=== PATIENT | female | born 1970 | race American Indian/Alaskan Native ===

== ENCOUNTER 2017-05-22 20:31 | Emergency (ER) | payer SELFPAY ==
[2017-05-22 20:32] VITALS: BMI 25.0
[2017-05-22 21:19] VITALS: BP 127/65; PULSE 72; RESP 16; TEMP 98.2; O2SAT 100
--- NOTE | 2017-05-22 21:22 | ED PDOC ---
Arrival/HPI - General Chief Complaint: Chest Pain Time Seen by Provider: 05/22/17 21:01 Historian: Patient - History of Present Illness Narrative History of Present Illness (Text): 05/22/17 21:05 Lindy Birmingham is a 46 year old female, with no significant past medical history , presents to the emergency department complaining of 1 day duration of retrosternal chest discomfort with exertion associated with shortness of breath. States that pain originates in the epigastric region and radiates to the chest. Describes discomfort as a pressure sensation. Denies any fever, chills, headache, dizziness, nausea, vomiting, diarrhea, urinary symptoms, or any other complaints at this time. Time/Duration: Other (1 day ) Symptom Course: Unchanged Severity Level: Mild Activities at Onset: Light Past Medical History - Provider Review Nursing Documentation Reviewed: Yes - Infectious Disease Hx of Infectious Diseases: None - Tetanus Immunization Tetanus Immunization: Unknown - Past Medical History Past Medical History: No Previous - Cardiac Hx Cardiac Disorders: No - Pulmonary Hx Respiratory Disorders: No - Neurological Hx Neurological Disorder: No - HEENT Hx HEENT Disorder: No - Renal Hx Renal Disorder: No - Endocrine/Metabolic Hx Endocrine Disorders: No - Hematological/Oncological Hx Blood Disorders: No - Integumentary Hx Dermatological Disorder: No - Musculoskeletal/Rheumatological Hx Musculoskeletal Disorders: No - Gastrointestinal Hx Gastrointestinal Disorders: No - Genitourinary/Gynecological Hx Genitourinary Disorders: No - Psychiatric Hx Psychophysiologic Disorder: Yes Hx Depression: Yes Hx Emotional Abuse: No Hx Physical Abuse: No Hx Substance Use: No - Past Surgical History Past Surgical History: No Previous - Anesthesia Hx Anesthesia: No - Suicidal Assessment Feels Threatened In Home Enviroment: No Family/Social History - Physician Review Nursing Documentation Reviewed: Yes Family/Social History: No Known Family HX Smoking Status: Never Smoked Hx Alcohol Use: Yes Frequency of alcohol use: Socially Hx Substance Use: No Hx Substance Use Treatment: No Allergies/Home Meds Allergies/Adverse Reactions: Allergies Penicillins Allergy (Verified 05/22/17 21:13) SHORTNESS OF BREATH Home Medications: Home Meds Medication Instructions Recorded Confirmed No Known Home Med [No Known Home 06/06/14 06/06/14 Med] Physical Exam - Physical Exam Narrative Physical Exam (Text): - Review of Systems Constitutional: Normal. absent: Fatigue, Weight Change, Fevers Eyes: Normal ENT: Normal Respiratory: Present: SOB absent: Cough, Sputum Cardiovascular: Present: Chest pain absent: Palpitations, Syncope Gastrointestinal: Present: Epigastric pain absent: Diarrhea, Nausea, Vomiting Genitourinary: Normal. absent: Dysuria, Frequency, Hematuria Musculoskeletal: Normal. absent: Arthralgias, Back Pain, Neck Pain Skin: Normal Neurological: Normal absent: Focal Weakness Endocrine: Normal Hemo/Lymphatic: Normal Psychiatric: Normal - Physical exam Patient appears age appropriate, speaking full sentences without difficulty. - Systems Exam Head: Present: Atraumatic, Normocephalic Pupils: Present: PERRL Extraocular Muscles: Present: EOMI Conjunctiva: Present: Normal Mouth: Present: Moist Mucous Membranes Neck: Present: Normal Range of Motion. No: MIDLINE TENDERNESS, Paraspinal Tenderness Respiratory/Chest: Present: Clear to Auscultation, Good Air Exchange. No: Respiratory Distress, Accessory Muscle Use, Tachypnic Cardiovascular: Present: Regular Rate and Rhythm, Normal S1, S2, Peripheral Pulses Present. No: Murmurs Abdomen: Present: Normal Bowel Sounds, No: Tenderness, Peritoneal Signs, Rebound, Guarding, Distention Back: Present: Normal Inspection. No: Midline Tenderness, Paraspinal Tenderness Upper Extremity: Present: Normal Inspection. No: Cyanosis, Edema Lower Extremity: Present: Normal Inspection. No: Edema Neurological: Present: GCS=15, Speech Normal, cranial nerves II through XII fully intact with no cerebellar abnormality, neuro-sensory fully intact. No focal neurological deficits. Skin: Present: Warm, Dry, Normal Color. No: Rashes Lymphatic: Present: OX3, NI, NC Psychiatric: Present: Alert, Oriented x 3, Normal Insight, Normal Concentration Vital Signs Reviewed: Yes Vital Signs Temp Pulse Resp BP Pulse Ox 05/22/17 21:18 98.2 F 72 16 127/65 100 Temperature: Afebrile Blood Pressure: Normal Pulse: Regular Respiratory Rate: Normal Appearance: Positive for: Well-Appearing, Non-Toxic, Comfortable Pain Distress: None Mental Status: Positive for: Alert and Oriented X 3 Medical Decision Making ED Course and Treatment: 05/22/17 21:23 Impression: A 46 year old female who presents to the emergency department complaining of 1 day duration of exertional chest discomfort. Differential Diagnosis included but are not limited to: ACS vs. PE vs. Atypical chest pain Plan: -- labs, cardiac enzymes -- Chest X-ray -- Aspirin -- Nitroglycerin -- Reassess and disposition Progress Notes: 05/22/17 21:26 Patient was offered 3 hour observation in the emergency department for repeat troponin. But patient states that she feels uncomfortable and wants to be observed in the hospital overnight. 05/22/17 22:25 Chest X-ray read and interpreted by me, which shows no cardiomegaly, no pneumothorax, no effusions. 05/22/17 22:[address] Carpenter (house doc), accepted obs/tele. resident informed pt in no distress aware of and agrees with plan - Lab Interpretations Lab Results: 05/22/17 21:56 05/22/17 21:56 Lab Results 05/22/17 21:56: Sodium 138, Potassium 3.8, Chloride 103, Carbon Dioxide 27, Anion Gap 12, BUN 18, Creatinine 1.1, Est GFR ( Amer) > 60, Est GFR (Non- Af Amer) 53, Random Glucose 84, Calcium 9.2, Total Bilirubin 0.3, AST 22, ALT 22 , Alkaline Phosphatase 61, Lactate Dehydrogenase 407, Total Creatine Kinase 110 , Troponin I < 0.01, Total Protein 7.5, Albumin 4.0, Globulin 3.5, Albumin/ Globulin Ratio 1.1 05/22/17 21:56: PT 10.8, INR 1.00, APTT 27.3, D-Dimer, Quantitative 0.29 05/22/17 21:56: WBC 5.4, RBC 4.20, Hgb 10.7 L, Hct 32.9 L, MCV 78.3 L, MCH 25.5 , MCHC 32.5, RDW 14.4, Plt Count 320, MPV 9.5, Gran % 48.8 L, Lymph % (Auto) 43.0 H, [place] % (Auto) 4.5, Eos % (Auto) 3.0, Baso % (Auto) 0.7, Gran # 2.63, Lymph # 2.3, [place] # 0.2, Eos # 0.2, Baso # 0.04 I have reviewed the lab results: Yes - RAD Interpretation Radiology Orders: 05/22/17 21:19 CHEST PORTABLE [RAD] Stat [place] Layer: ED Physician - EKG Interpretation Interpreted by ED Physician: Yes Type: 12 lead EKG - Medication Orders Current Medication Orders: Discontinued Medications Aspirin (Aspirin Chewable) 324 mg PO STAT STA Stop: 05/22/17 21:15 Last Admin: 05/22/17 21:33 Dose: 324 mg Nitroglycerin (Nitrostat Sl Tab) 0.3 mg SL STAT STA Stop: 05/22/17 21:15 Last Admin: 05/22/17 21:33 Dose: 0.3 mg - Scribe Statement The provider has reviewed the documentation as recorded by the Apolonia Atkins Provider Attestation: Provider Scribe Attestation: All medical record entries made by the Apolonia were at my direction and personally dictated by me. I have reviewed the chart and agree that the record accurately reflects my personal performance of the history, physical exam, medical decision making, and the department course for this patient. I have also personally directed, reviewed, and agree with the discharge instructions and disposition. Disposition/Present on Arrival - Present on Arrival Any Indicators Present on Arrival: No History of DVT/PE: No History of Uncontrolled Diabetes: No Urinary Catheter: No History of Decub. Ulcer: No History Surgical Site Infection Following: None - Disposition Have Diagnosis and Disposition been Completed?: Yes Diagnosis: Chest pain Disposition: AGAINST MEDICAL ADVICE Disposition Time: 22:28 Patient Plan: Observation Patient Problems: Current Active Problems Problem Status Onset Chest pain Acute Condition: STABLE
[2017-05-22 22:06] LABS: BASO # 0.04 K/mm3 (0.0-2.0); BASO % 0.7 % (0.0-3.0); EOS # 0.2 (0.0-0.7); GRAN # 2.63 (1.4-6.5); GRAN % 48.8 % (50.0-68.0); HEMOGLOBIN 10.7 g/dL (12.0-16.0); LYMPH # 2.3 (1.2-3.4); MEAN CELL VOLUME 78.3 fl (80.0-105.0); MEAN CORPUSCULAR HEMOGLOBIN 25.5 pg (25.0-35.0); MEAN CORPUSCULAR HGB CONC 32.5 g/dl (31.0-37.0); MEAN PLATELET VOLUME 9.5 fl (7.0-11.0); MONO # 0.2 (0.1-0.6); MONO % 4.5 % (1.0-6.0); PLATELET COUNT 320 10^3/uL (120.0-450.0); RED CELL DISTRIBUTION WIDTH 14.4 % (11.5-14.5); WHITE BLOOD COUNT 5.4 10^3/ul (4.5-11.0)
[2017-05-22 22:18] LABS: ALB/GLOB RATIO 1.1 (1.1-1.8); ALT/SGPT 22 U/L (7-56); AST/SGOT 22 U/L (15-39); BLOOD UREA NITROGEN 18 mg/dL (7-21); CALCIUM 9.2 mg/dL (8.4-10.5); GFR AFRICAN-AMERICAN > 60; GFR NON-AFRICAN AMERICAN 53
[2017-05-22 22:28] LABS: PARTIAL THROMBOPLASTIN TIME 27.3 Seconds (23.7-30.8); PROTHROMBIN TIME 10.8 Seconds (9.9-11.8)
[2017-05-22 22:29] LABS: D DIMER 0.29 mg/L FEU (0-0.50)
[2017-05-22 22:32] LABS: TROPONIN I < 0.01 ng/mL
--- NOTE | 2017-05-23 00:55 | CP.PCM.HP ---
History of Present Illness - History of Present Illness History of Present Illness: CC: Chest pain HPI: Ms. Lindy Birmingham is a 46 year old AA female with a past medical history significant for HLD and a childhood heart murmur who presented to the ED with complaints of intermittent chest pain for the past two days. Patient states that two days ago, she was on her daily mile long walk when she began to experience a substernal non-radiating chest "pressure" with associated lightheadedness, dizziness and SOB. She states that the pain lasted for a few minutes, subsided and came back a few minutes later. This pattern continued for 2-3 cycles and then the pain completely subsided after patient rested. This same cycle began again today on her walk but the pain had increased and patient came to ED for evaluation. She reports that pain was worse with activity and better with rest. Patient has never experienced this before. Patient does endorse that her cousin just suffered a massive stroke last week and her dog this week and that she has been emotionally stressed out but that her fiance has been supportive. She also reports that she had an exercise stress test done two years ago that was "normal". An EKG done in the ED was read as NSR and a chest x-ray was read showing no cardiomegaly, no pneumothorax, and no effusions. A troponin done in the ED was negative. Currently, patient is asymptomatic. Patient denies headache, fever, chills, weight loss, neck pain, back pain, dysphagia, sore throat, palpitations, chest pain, shortness of breath, cough, pleurisy, abdominal pain, N/V, diarrhea, constipation, urinary symptoms, or any numbness, tingling or weakness of any extremity. PMH: Mastoiditis, HLD and childhood heart murmur PSH: Denies Family: Father-DM Social: denies tobacco, alcohol or illicit drug use Allergies: Penicillin Home Medications: None Present on Admission - Present on Admission Any Indicators Present on Admission: No Review of Systems - Review of Systems Review of Systems: As per HPI Past Patient History - Infectious Disease Hx of Infectious Diseases: None - Tetanus Immunizations Tetanus Immunization: Unknown - Past Social History Smoking Status: Never Smoked - CARDIAC Hx Cardiac Disorders: No - PULMONARY Hx Respiratory Disorders: No - NEUROLOGICAL Hx Neurological Disorder: No - HEENT Hx HEENT Problems: No - RENAL Hx Chronic Kidney Disease: No - ENDOCRINE/METABOLIC Hx Endocrine Disorders: No - HEMATOLOGICAL/ONCOLOGICAL Hx Blood Disorders: No - INTEGUMENTARY Hx Dermatological Problems: No - MUSCULOSKELETAL/RHEUMATOLOGICAL Hx Musculoskeletal Disorders: No - GASTROINTESTINAL Hx Gastrointestinal Disorders: No - GENITOURINARY/GYNECOLOGICAL Hx Genitourinary Disorders: No - PSYCHIATRIC Hx Psychophysiologic Disorder: Yes Hx Depression: Yes Hx Emotional Abuse: No Hx Physical Abuse: No Hx Substance Use: No - SURGICAL HISTORY Hx Surgeries: No - ANESTHESIA Hx Anesthesia: No Meds Allergies/Adverse Reactions: Allergies Allergy/AdvReac Type Severity Reaction Status Date / Time Penicillins Allergy SHORTNESS Verified 05/22/17 21:13 OF BREATH Physical Exam - Constitutional Appears: No Acute Distress - Head Exam Head Exam: ATRAUMATIC, NORMAL INSPECTION, NORMOCEPHALIC - Eye Exam Eye Exam: EOMI, Normal appearance, PERRL. absent: Conjunctival injection, Scleral icterus Pupil Exam: NORMAL ACCOMODATION, PERRL - ENT Exam ENT Exam: Mucous Membranes Moist, Normal Exam, Normal External Ear Exam, Normal Oropharynx - Neck Exam Neck exam: Positive for: Full Rom, Normal Inspection. Negative for: Lymphadenopathy, Meningismus, Tenderness - Respiratory Exam Respiratory Exam: Chest Wall Tenderness, Clear to Auscultation Bilateral, NORMAL BREATHING PATTERN. absent: Rales, Rhonchi, Wheezes, Respiratory Distress - Cardiovascular Exam Cardiovascular Exam: REGULAR RHYTHM, RRR, +S1, +S2. absent: Tachycardia, Diastolic murmur, Irregular Rhythm, JVD, Systolic Murmur - GI/Abdominal Exam GI & Abdominal Exam: Normal Bowel Sounds, Soft. absent: Distended, Firm, Guarding, Hernia, Tenderness - Exam Exam: absent: Bladder Distension - Extremities Exam Extremities exam: Positive for: normal capillary refill, normal inspection, pedal pulses present. Negative for: calf tenderness, pedal edema - Back Exam Back exam: absent: CVA tenderness (L), CVA tenderness (R), rash noted - Neurological Exam Neurological exam: Alert, Normal Gait, Oriented x3 - Psychiatric Exam Psychiatric exam: Normal Affect, Normal Mood - Skin Skin Exam: Dry, Intact, Normal Color, Warm Results - Vital Signs Recent Vital Signs: Last Vital Signs Temp 98.2 F 05/22/17 21:18 Pulse 72 05/22/17 21:18 Resp 16 05/22/17 21:18 BP 127/65 08/10/17 21:18 Pulse Ox 100 05/22/17 21:18 - Labs Result Diagrams: 05/22/17 21:56 05/22/17 21:56 Labs: Laboratory Results - last 24 hr 05/22/17 05/22/17 05/22/17 21:56 21:56 21:56 WBC 5.4 RBC 4.20 Hgb 10.7 L Hct 32.9 L MCV 78.3 L MCH 25.5 MCHC 32.5 RDW 14.4 Plt Count 320 MPV 9.5 Gran % 48.8 L Lymph % (Auto) 43.0 H [place] % (Auto) 4.5 Eos % (Auto) 3.0 Baso % (Auto) 0.7 Gran # 2.63 Lymph # 2.3 [place] # 0.2 Eos # 0.2 Baso # 0.04 PT 10.8 INR 1.00 APTT 27.3 D-Dimer, Quantitative 0.29 Sodium 138 Potassium 3.8 Chloride 103 Carbon Dioxide 27 Anion Gap 12 BUN 18 Creatinine 1.1 Est GFR ( Amer) > 60 Est GFR (Non-Af Amer) 53 Random Glucose 84 Calcium 9.2 Total Bilirubin 0.3 AST 22 ALT 22 Alkaline Phosphatase 61 Lactate Dehydrogenase 407 Total Creatine Kinase 110 Troponin I < 0.01 Total Protein 7.5 Albumin 4.0 Globulin 3.5 Albumin/Globulin Ratio 1.1 Assessment & Plan - Assessment and Plan (Free Text) Assessment: 46 year old AA female with a past medical history significant for HLD and a childhood heart murmur who presented to the ED with complaints of intermittent chest pain for the past two days Plan: 1. Chest Pain -Patient wished to sign out against medical advice for inpatient treatment for chest pain and further cardiopulmonary work-up -Patient was explained the benefits of inpatient treatment as well as the potential risks of refusing inpatient treatment including but not limited to [place] , stroke, PE, permanent disability, CHF, sepsis, and -Patient verbalized understanding to aforementioned treatment benefits and the risks of refusing said treatment -Patient signed out against medical advice at 2314 on 05/22 with instructions to return should her symptoms persist or worsen Patient seen and case discussed with attending, Dr. Carpenter. - Date & Time Date: 05/23/17 Time: 00:57
--- NOTE | 2017-05-23 09:20 | RAD ---
HISTORY: cp COMPARISON: No prior. FINDINGS: LUNGS: No active pulmonary disease. PLEURA: No significant pleural effusion identified, no pneumothorax apparent. CARDIOVASCULAR: Normal. OSSEOUS STRUCTURES: No significant abnormalities. VISUALIZED UPPER ABDOMEN: Normal. OTHER FINDINGS: None. IMPRESSION: No active disease.
--- NOTE | 2017-05-23 23:50 | CARD ---
APPROVED REPORT EKG Measurement Heart [id number] ID [id number] <Conclusion> Normal sinus rhythm Normal ECG
== END 2017-05-22 23:17 | disposition left against medical advice (07) ==
LOC: ED 20:31 → ERH 22:28 → UNDOADMOB 22:28 → ED 23:17
DX: R07.9 Chest pain, unspecified (principal)

== ENCOUNTER 2017-09-17 19:14 | Emergency (ER) | payer OTHER ==
[2017-09-17 19:14] VITALS: BMI 25.0
[2017-09-17 19:22] VITALS: TEMP 98.2
[2017-09-17 20:20] LABS: BASO # 0.05 K/mm3 (0.0-2.0); BASO % 0.7 % (0.0-3.0); EOS # 0.2 (0.0-0.7); GRAN # 3.48 (1.4-6.5); GRAN % 51.5 % (50.0-68.0); HEMATOCRIT 35.4 % (36.0-48.0); LYMPH # 2.6 (1.2-3.4); MEAN CELL VOLUME 78.1 fl (80.0-105.0); MEAN CORPUSCULAR HEMOGLOBIN 24.9 pg (25.0-35.0); MEAN CORPUSCULAR HGB CONC 31.9 g/dl (31.0-37.0); MEAN PLATELET VOLUME 9.7 fl (7.0-11.0); MONO # 0.4 (0.1-0.6); MONO % 5.8 % (1.0-6.0); WHITE BLOOD COUNT 6.8 10^3/ul (4.5-11.0)
[2017-09-17 20:33] LABS: ALB/GLOB RATIO 1.2 (1.1-1.8); ALKALINE PHOSPHATASE 74 U/L (38-126); ALT/SGPT 23 U/L (7-56); AST/SGOT 38 U/L (14-36); BILIRUBIN,TOTAL 0.4 mg/dL (0.2-1.3); BLOOD UREA NITROGEN 18 mg/dL (7-21); CALCIUM 9.8 mg/dL (8.4-10.5); CARBON DIOXIDE 29 mmol/L (21-33); CHLORIDE 102 mmol/L (98-107); GFR AFRICAN-AMERICAN > 60; GLUCOSE,RANDOM 122 mg/dL (70-110); POTASSIUM 3.5 mmol/L (3.6-5.0); SODIUM 139 mmol/L (132-148); TOTAL PROTEIN 8.3 g/dL (5.8-8.3)
--- NOTE | 2017-09-17 21:54 | ED PDOC ---
Arrival/HPI - General Chief Complaint: Anxiety Time Seen by Provider: 09/17/17 19:33 Historian: Patient - History of Present Illness Narrative History of Present Illness (Text): 09/17/17 21:45 47yo female with no PMhx who present with complaint of anxiety and depression. States her mother and she fees depressed. Notes history of depression once that she managed without without medication. She notes that she have never seen a Psychiatrist. She denies SI/HI, any somatic complaint. Past Medical History - Provider Review Nursing Documentation Reviewed: Yes - Infectious Disease Hx of Infectious Diseases: None - Tetanus Immunization Tetanus Immunization: Unknown - Past Medical History Past Medical History: No Previous - Cardiac Hx Cardiac Disorders: No - Pulmonary Hx Respiratory Disorders: No - Neurological Hx Neurological Disorder: No - HEENT Hx HEENT Disorder: No - Renal Hx Renal Disorder: No - Endocrine/Metabolic Hx Endocrine Disorders: No - Hematological/Oncological Hx Blood Disorders: No - Integumentary Hx Dermatological Disorder: No - Musculoskeletal/Rheumatological Hx Musculoskeletal Disorders: No - Gastrointestinal Hx Gastrointestinal Disorders: No - Genitourinary/Gynecological Hx Genitourinary Disorders: No - Psychiatric Hx Psychophysiologic Disorder: Yes Hx Depression: Yes Hx Emotional Abuse: No Hx Physical Abuse: No Hx Substance Use: No - Past Surgical History Past Surgical History: No Previous - Anesthesia Hx Anesthesia: No - Suicidal Assessment Feels Threatened In Home Enviroment: No Family/Social History - Physician Review Nursing Documentation Reviewed: Yes Family/Social History: Unknown Family HX Smoking Status: Never Smoked Hx Alcohol Use: Yes Hx Substance Use: No Hx Substance Use Treatment: No Allergies/Home Meds Allergies/Adverse Reactions: Allergies Penicillins Allergy (Verified 09/17/17 19:20) SHORTNESS OF BREATH shellfish derived Allergy (Verified 09/17/17 19:20) ANAPHYLAXIS Home Medications: Home Meds Medication Instructions Recorded Confirmed No Known Home Med [No Known Home 06/06/14 09/17/17 Med] Review of Systems - Physician Review All systems were reviewed & negative as marked: Yes - Review of Systems Constitutional: Normal Eyes: Normal ENT: Normal Respiratory: Normal Cardiovascular: Normal Gastrointestinal: Normal Genitourinary Female: Normal Musculoskeletal: Normal Skin: Normal Neurological: Normal Endocrine: Normal Hemo/Lymphatic: Normal Psychiatric: Anxiety, Depression. absent: Suicidal Ideation Physical Exam Vital Signs Reviewed: Yes Vital Signs Temp Pulse Resp BP Pulse Ox 09/17/17 19:21 98.2 F 87 17 180/100 H 96 Temperature: Afebrile Blood Pressure: Normal Pulse: Regular Respiratory Rate: Normal Appearance: Positive for: Well-Appearing, Non-Toxic, Comfortable Pain Distress: None Mental Status: Positive for: Alert and Oriented X 3 - Systems Exam Head: Present: Atraumatic, Normocephalic Pupils: Present: PERRL Extroacular Muscles: Present: EOMI Conjunctiva: Present: Normal Mouth: Present: Moist Mucous Membranes Neck: Present: Normal Range of Motion Respiratory/Chest: Present: Clear to Auscultation, Good Air Exchange. No: Respiratory Distress, Accessory Muscle Use Cardiovascular: Present: Regular Rate and Rhythm, Normal S1, S2. No: Murmurs Abdomen: Present: Normal Bowel Sounds. No: Tenderness, Distention, Peritoneal Signs Back: Present: Normal Inspection Upper Extremity: Present: Normal Inspection. No: Cyanosis, Edema Lower Extremity: Present: Normal Inspection. No: Edema Neurological: Present: GCS=15, CN II-XII Intact, Speech Normal Skin: Present: Warm, Dry, Normal Color. No: Rashes Psychiatric: Present: Alert, Oriented x 3, Normal Insight, Normal Concentration Medical Decision Making ED Course and Treatment: 09/17/17 22:38 Pt was hemodyamcailly stble in ED. Small leukocyte was noted in UA, pt however did not have any urinary symptoms. She was medically cleared for psych evaluation Was seen in ED by VERONICA Husesin who DC her home with outpt f/u to [facility]. - Lab Interpretations Lab Results: 09/17/17 19:57 09/17/17 19:57 Lab Results 09/17/17 22:09: Urine Color Yellow, Urine Appearance Clear, Urine pH 6.0, Ur Specific [place] 1.015, Urine Protein Negative, Urine Glucose (UA) Negative, Urine Ketones Negative, Urine Blood Negative, Urine Nitrate Negative, Urine Bilirubin Negative, Urine Urobilinogen 0.2, Ur Leukocyte Esterase Small H, Urine RBC Pending, Urine WBC Pending 09/17/17 19:57: Alcohol, Quantitative < 10 09/17/17 19:57: Salicylates < 1 L, Acetaminophen < 10.0 L 09/17/17 19:57: Sodium 139, Potassium 3.5 L, Chloride 102, Carbon Dioxide 29, Anion Gap 12, BUN 18, Creatinine 1.0, Est GFR ( Amer) > 60, Est GFR (Non- Af Amer) 59, Random Glucose 122 H, Calcium 9.8, Total Bilirubin 0.4, AST 38 H, ALT 23, Alkaline Phosphatase 74, Total Protein 8.3, Albumin 4.4, Globulin 3.8, Albumin/Globulin Ratio 1.2 09/17/17 19:57: WBC 6.8 D, RBC 4.53, Hgb 11.3 L, Hct 35.4 L, MCV 78.1 L, MCH 24.9 L, MCHC 31.9, RDW 14.0, Plt Count 408, MPV 9.7, Gran % 51.5, Lymph % (Auto ) 39.0 H, [place] % (Auto) 5.8, Eos % (Auto) 3.0, Baso % (Auto) 0.7, Gran # 3.48, Lymph # 2.6, [place] # 0.4, Eos # 0.2, Baso # 0.05 Disposition/Present on Arrival - Present on Arrival Any Indicators Present on Arrival: No History of DVT/PE: No History of Uncontrolled Diabetes: No Urinary Catheter: No History of Decub. Ulcer: No History Surgical Site Infection Following: None - Disposition Have Diagnosis and Disposition been Completed?: Yes Diagnosis: Depression Disposition: HOME/ ROUTINE Disposition Time: 22:40 Patient Plan: Discharge Condition: STABLE Discharge Instructions (ExitCare): Depression (ED) Referrals: Luan Young MD [Primary Care Provider] - Follow up with primary Forms: [employer] (Spanish)
[2017-09-17 22:17] LABS: URINE BILIRUBIN NEGATIVE (NEGATIVE); URINE BLOOD NEGATIVE (NEGATIVE); URINE GLUCOSE (UA) NEGATIVE (NEGATIVE); URINE KETONE NEGATIVE (NEGATIVE); URINE LEUKOCYTE ESTERASE SMALL Leu/uL (NEGATIVE); URINE PROTEIN NEGATIVE mg/dL (<30 mg/dL); URINE UROBILINOGEN 0.2 E.U./dL (<1 E.U./dL)
[2017-09-17 22:36] LABS: URINE APPEARANCE CLEAR (CLEAR); URINE COLOR YELLOW (YELLOW)
[2017-09-17 22:38] LABS: URINE RBC NEGATIVE /hpf (0-2)
[2017-09-17 22:39] LABS: URINE BACTERIA FEW (NEG)
[2017-09-17 23:16] VITALS: BP 152/98; PULSE 82; RESP 16; O2SAT 98
== END 2017-09-17 23:17 | disposition home or self-care (01) ==
LOC: ED 19:14
DX: F32.9 Major depressive disorder, single episode, unspecified (principal)

== ENCOUNTER 2018-01-11 10:05 | Emergency (ER) | payer MEDICAID ==
[2018-01-11 10:05] VITALS: BMI 25.0
[2018-01-11 10:13] VITALS: TEMP 99.5
[2018-01-11] MEDS ORDERED: Promethazine/Cod 6.25mg-10mg/5ml Syr UD PO STA (10:25)
--- NOTE | 2018-01-11 10:35 | ED PDOC ---
Arrival/HPI - General Chief Complaint: Cough, Cold, Congestion Time Seen by Provider: 01/11/18 10:17 Historian: Patient - History of Present Illness Narrative History of Present Illness (Text): 01/11/18 10:26 This 47 yo female who denies pmh, presents to this ED c/o fever, cough and malaise x 2 days. Patient denies cp, sob, cp, abdominal pain, urinary symptoms , recent travel, hemoptysis, sick contact, or abnormal gait. Time/Duration: Other (see hpi) Context: Home Past Medical History - Provider Review Nursing Documentation Reviewed: Yes - Infectious Disease Hx of Infectious Diseases: None - Tetanus Immunization Tetanus Immunization: Unknown - Past Medical History Past Medical History: No Previous - Cardiac Hx Cardiac Disorders: No - Pulmonary Hx Respiratory Disorders: No - Neurological Hx Neurological Disorder: No - HEENT Hx HEENT Disorder: No - Renal Hx Renal Disorder: No - Endocrine/Metabolic Hx Endocrine Disorders: No - Hematological/Oncological Hx Blood Disorders: No - Integumentary Hx Dermatological Disorder: No - Musculoskeletal/Rheumatological Hx Musculoskeletal Disorders: No - Gastrointestinal Hx Gastrointestinal Disorders: No - Genitourinary/Gynecological Hx Genitourinary Disorders: No - Psychiatric Hx Psychophysiologic Disorder: Yes Hx Depression: Yes Hx Emotional Abuse: No Hx Physical Abuse: No Hx Substance Use: No - Past Surgical History Past Surgical History: No Previous - Anesthesia Hx Anesthesia: No Hx Anesthesia Reactions: No Hx Malignant Hyperthermia: No - Suicidal Assessment Feels Threatened In Home Enviroment: No Family/Social History - Physician Review Nursing Documentation Reviewed: Yes Family/Social History: Other (noncontributory) Smoking Status: Never Smoked Hx Alcohol Use: No Hx Substance Use: No Hx Substance Use Treatment: No Allergies/Home Meds Allergies/Adverse Reactions: Allergies Penicillins Allergy (Verified 01/11/18 10:13) SHORTNESS OF BREATH shellfish derived Allergy (Verified 01/11/18 10:13) ANAPHYLAXIS Review of Systems - Review of Systems Constitutional: Fatigue, Fevers. absent: Weight Change, Night Sweats Eyes: Normal ENT: Normal. absent: Sore Throat, Rhinorrhea Respiratory: Cough. absent: SOB, Sputum, Wheezing Cardiovascular: Normal. absent: Chest Pain, Palpitations, Edema, Orthopnea, Syncope Gastrointestinal: Normal. absent: Abdominal Pain, Nausea, Vomiting Genitourinary Female: Normal. absent: Dysuria, Frequency Musculoskeletal: Normal. absent: Back Pain, Neck Pain Skin: Normal. absent: Rash Neurological: Normal. absent: Headache, Dizziness, Focal Weakness, Gait Changes , Speech Changes, Facial Droop, Disequilibrium, Seizure Endocrine: Normal Hemo/Lymphatic: Normal Psychiatric: Normal Physical Exam Vital Signs Temp Pulse Resp BP Pulse Ox 01/11/18 10:08 99.5 F 90 19 134/82 96 Temperature: Afebrile Blood Pressure: Normal Pulse: Regular Respiratory Rate: Normal Appearance: Positive for: Well-Appearing, Non-Toxic, Comfortable Pain Distress: None Mental Status: Positive for: Alert and Oriented X 3 - Systems Exam Head: Present: Atraumatic, Normocephalic Pupils: Present: PERRL Extroacular Muscles: Present: EOMI Conjunctiva: Present: Normal Mouth: Present: Moist Mucous Membranes Neck: Present: Normal Range of Motion Respiratory/Chest: Present: Clear to Auscultation, Good Air Exchange. No: Respiratory Distress, Accessory Muscle Use Cardiovascular: Present: Regular Rate and Rhythm, Normal S1, S2. No: Murmurs Abdomen: Present: Normal Bowel Sounds. No: Tenderness, Distention, Peritoneal Signs Back: Present: Normal Inspection Upper Extremity: Present: Normal Inspection. No: Cyanosis, Edema Lower Extremity: Present: Normal Inspection. No: Edema Neurological: Present: GCS=15, CN II-XII Intact, Speech Normal Skin: Present: Warm, Dry, Normal Color. No: Rashes Psychiatric: Present: Alert, Oriented x 3, Normal Insight, Normal Concentration Medical Decision Making ED Course and Treatment: 01/11/18 11:34 Re-evaluation. Patient feels better. Discussed results and plan with patient who expresses understanding. All questions answered and there is agreement with the plan to discharge home with instructions. Patient stable for discharge. Return if symptoms persist or worsen. Re-evaluation Time: 11:34 Reassessment Condition: Re-examined, Improved - Lab Interpretations Lab Results: Lab Results 01/11/18 10:45: Influenza Typ A,B (EIA) Negative for flu a/b I have reviewed the lab results: Yes Interpretation: No clinic. lab abnormalty - RAD Interpretation Narrative RAD Interpretations (Text): 01/11/18 11:34 Chest x-rays: NAD Radiology Orders: 01/11/18 10:25 CHEST TWO VIEWS (PA/LAT) [RAD] Stat - Medication Orders Current Medication Orders: Discontinued Medications Acetaminophen (Tylenol 325mg Tab) 975 mg PO STAT STA Stop: 01/11/18 10:27 Last Admin: 01/11/18 10:44 Dose: 975 mg MAR Pain/Vitals Document 01/11/18 10:44 EQ (Rec: 01/11/18 10:45 EQ [id number]) Pain Reassessment Is This A Pain ReAssessment? No Sleep Is patient sleeping during reassessment? No Presence of Pain Presence of Pain Yes Promethazine HCl/Codeine (Phenergan/Codeine Oral Syrup) 5 ml PO STAT STA Stop: 01/11/18 10:26 Last Admin: 01/11/18 10:45 Dose: 5 ml Disposition/Present on Arrival - Present on Arrival Any Indicators Present on Arrival: No History of DVT/PE: No History of Uncontrolled Diabetes: No Urinary Catheter: No History of Decub. Ulcer: No History Surgical Site Infection Following: None - Disposition Have Diagnosis and Disposition been Completed?: Yes Diagnosis: Acute bronchitis Disposition: HOME/ ROUTINE Disposition Time: 11:35 Patient Plan: Discharge Patient Problems: Current Active Problems Problem Status Onset Acute bronchitis Acute Condition: GOOD Discharge Instructions (ExitCare): Acute Bronchitis, Adult (DC) Additional Instructions: Call private doctor for follow up visit in 1-2 days. Take medication as instructed. Return to emergency if symptoms worsen. Prescriptions: Azithromycin [Z-Jaylon] 250 mg PO DAILY #6 tab Promethazine/Codeine [Codeine/Promethazine 10 MG/5 Ml-6.25 MG/5 Ml] 5 ml PO Q4H PRN #120 ml PRN Reason: Cough And Congestion Referrals: Luan Young MD [Family Provider] - Follow up with primary Forms: [employer] (Namibian)
[2018-01-11 11:47] VITALS: BP 126/79; PULSE 87; RESP 18; O2SAT 100
--- NOTE | 2018-01-11 14:31 | RAD ---
HISTORY: Cough COMPARISON: 05/22/2017 TECHNIQUE: Chest PA and lateral FINDINGS: LUNGS: No active pulmonary disease. PLEURA: No significant pleural effusion identified. No pneumothorax apparent. CARDIOVASCULAR: Normal. OSSEOUS STRUCTURES: No significant abnormalities. VISUALIZED UPPER ABDOMEN: Normal. OTHER FINDINGS: None. IMPRESSION: No active disease. No significant interval change compared to the prior examination(s).
== END 2018-01-11 11:48 | disposition home or self-care (01) ==
LOC: ED 10:05
DX: J20.9 Acute bronchitis, unspecified (principal)

== ENCOUNTER 2018-07-21 17:47 | Emergency (ER) | payer MEDICAID ==
[2018-07-21 17:48] VITALS: BMI 25.0
--- NOTE | 2018-07-21 18:01 | ED PDOC ---
Arrival/HPI - General Time Seen by Provider: 07/21/18 17:48 Historian: Patient, EMS - History of Present Illness Narrative History of Present Illness (Text): 07/21/18 17:49 48 y/o female, pmh including htn/hld, penicillin allergy, biba c/o feeling fatigue and tired. Pt. stated that she has not been sleeping well for the past 2-3 weeks, had a heavy menstrual period couple days ago, walk to her job today around 4pm and working as [employer] ticket cashier, started to feel fatigue and tired which she didn't feel where she develops nauseous and cold sweat, no dizziness, admits recently started the hctz 12.5m po and the bp been well controlled, doesn't feel well and request to call the ambulance to the ER for evaluation but admits she didn't eat much today. Pt. stated that she feels well at this time, no numbness or tinging, no slurred speech, no night sweat, no coughing, no chest pain or palpitation, no rash, no change in vision, no other medical or psychological complaints. I reviewed the immigration associate noted, and my HPI do show discrepancy which the patient agreed with my HPI. Past Medical History - Provider Review Nursing Documentation Reviewed: Yes - Infectious Disease Hx of Infectious Diseases: None - Tetanus Immunization Tetanus Immunization: Unknown - Past Medical History Past Medical History: No Previous - Cardiac Hx Cardiac Disorders: No - Pulmonary Hx Respiratory Disorders: No - Neurological Hx Neurological Disorder: No - HEENT Hx HEENT Disorder: No - Renal Hx Renal Disorder: No - Endocrine/Metabolic Hx Endocrine Disorders: No - Hematological/Oncological Hx Blood Disorders: No - Integumentary Hx Dermatological Disorder: No - Musculoskeletal/Rheumatological Hx Musculoskeletal Disorders: No - Gastrointestinal Hx Gastrointestinal Disorders: No - Genitourinary/Gynecological Hx Genitourinary Disorders: No - Psychiatric Hx Psychophysiologic Disorder: Yes Hx Depression: Yes Hx Emotional Abuse: No Hx Physical Abuse: No Hx Substance Use: No - Past Surgical History Past Surgical History: No Previous - Anesthesia Hx Anesthesia: No Hx Anesthesia Reactions: No Hx Malignant Hyperthermia: No - Suicidal Assessment Feels Threatened In Home Enviroment: No Family/Social History - Physician Review Nursing Documentation Reviewed: Yes Family/Social History: Unknown Family HX Smoking Status: Never Smoked Hx Alcohol Use: No Hx Substance Use: No Hx Substance Use Treatment: No Allergies/Home Meds Allergies/Adverse Reactions: Allergies Penicillins Allergy (Verified 01/11/18 10:13) SHORTNESS OF BREATH shellfish derived Allergy (Verified 01/11/18 10:13) ANAPHYLAXIS Review of Systems - Review of Systems Constitutional: Fatigue. absent: Fevers Eyes: absent: Vision Changes ENT: absent: Hearing Changes Respiratory: absent: SOB, Cough Cardiovascular: absent: Chest Pain Gastrointestinal: absent: Abdominal Pain, Diarrhea, Nausea, Vomiting Musculoskeletal: absent: Arthralgias, Back Pain Skin: absent: Rash, Pruritis, Skin Lesions Neurological: absent: Headache, Dizziness Psychiatric: absent: Anxiety, Depression, Suicidal Ideation Physical Exam - Systems Exam Head: Present: Atraumatic, Normocephalic Pupils: Present: PERRL Extroacular Muscles: Present: EOMI Conjunctiva: Present: Normal Ears: Present: Normal, NORMAL TM, Normal Canal. No: Erythema Mouth: Present: Moist Mucous Membranes Pharnyx: Present: Normal. No: ERYTHEMA, EXUDATE, TONSILS ENLARGED Nose (External): Present: Atraumatic. No: Abrasion, Contusion, Laceration Nose (Internal): Present: Normal Inspection, No Active Bleeding. No: Rhinorrhea, Septal Hematoma, Epistaxis Neck: Present: Normal Range of Motion, Trachea Midline. No: Meningeal Signs, MIDLINE TENDERNESS, Paraspinal Tenderness, Lymphadenopathy Respiratory/Chest: Present: Clear to Auscultation, Good Air Exchange. No: Respiratory Distress, Accessory Muscle Use Cardiovascular: Present: Regular Rate and Rhythm, Normal S1, S2. No: Murmurs Abdomen: No: Tenderness, Distention, Peritoneal Signs, Rebound, Guarding Back: Present: Normal Inspection. No: CVA Tenderness, Midline Tenderness Upper Extremity: Present: Normal Inspection, Normal ROM, NORMAL PULSES, Neurovascularly Intact, Capillary Refill < 2s. No: Cyanosis, Edema, Deformity Lower Extremity: Present: Normal Inspection, NORMAL PULSES, Normal ROM, Neurovascularly Intact, Capillary Refill < 2 s. No: Edema, Abel's Sign, Tenderness, Swelling, Deformity Neurological: Present: GCS=15, CN II-XII Intact, Speech Normal, Motor Func Grossly Intact, Gait Normal, Memory Normal, Other (normal finger to nose test, negative rhomberg, NIHSS is zero, no focal neurological deficits. ) Skin: Present: Warm, Dry, Normal Color. No: Rashes Psychiatric: Present: Alert, Oriented x 3, Normal Insight, Normal Concentration Medical Decision Making ED Course and Treatment: 07/21/18 18:05 Differential: Dehydration vs. UTI vs. anemia vs. fatigue -Labs/ua -EKG -CXR -IVF -Orthostatic v/s -Observe and reassess 07/21/18 19:42 -Urine hcg is negative. -EKG: NSR @ 72 BPM, no acute ST or T wave changes compared with previous ekg, chronic T wave inversion on the lead aVR -CXR wet read show no active disease -Labs show no acute findings except K+ 3.5 (potassium chloride 20meq po ordered), Hgb 11.2 from 11.3 (chronic anemia), Lipase 315 (unspecific, no abdominal pain, needs GI follow up), Glucose 59 (hypoglycemia, admits not eating, food and juice given) -UA show +yeast and +bacteria UTI, diflucan and macrobid ordered. -Orthostatic v/s reviewed and checked by me, no orthostatic hypotension 07/21/18 20:47 -repeat glucose is 93, eating and drinking -Pt. feels much better, walking around, not feeling fatigue, all labs and radiology results discussed with the patient, advised to have outpatient follow up with the pmd and GI. -Discharge home with macrobid, eat more bananas at home, continue your iron supplement at home, your lipase is little elevated but repeat in 1 week including Urine analysis, follow up with your own pmd and GI within 2 days, return to the ER for any new or worsening signs or symptoms. - EKG Interpretation EKG Interpretation (Text): 07/21/18 18:40 NSR @ 72 BPM, no acute ST or T wave changes compared with previous ekg, chronic T wave inversion on the lead aVR Interpreted by ED Physician: Yes Type: 12 lead EKG Comparison: Com.w/previous EKG - PA / BAND SCROLL SAW OPERATOR / Resident Statement MD/DO has reviewed & agrees with the documentation as recorded. Disposition/Present on Arrival - Present on Arrival Any Indicators Present on Arrival: No History of DVT/PE: No History of Uncontrolled Diabetes: No Urinary Catheter: No History of Decub. Ulcer: No History Surgical Site Infection Following: None - Disposition Have Diagnosis and Disposition been Completed?: Yes Diagnosis: Candidiasis, UTI (urinary tract infection), Hypoglycemia, Elevated lipase, Hypokalemia, Fatigue Disposition: HOME/ ROUTINE Disposition Time: 19:45 Patient Plan: Discharge Patient Problems: Current Active Problems Problem Status Onset UTI (urinary tract infection) Acute Candidiasis Acute Hypoglycemia Acute Elevated lipase Acute Hypokalemia Acute Condition: IMPROVED Discharge Instructions (ExitCare): Hypokalemia (DC), Urinary Tract Infection, Adult (DC) Additional Instructions: -Discharge home with macrobid, eat more bananas at home, continue your iron supplement at home, your lipase is little elevated but repeat in 1 week including Urine analysis, follow up with your own pmd and GI within 2 days, return to the ER for any new or worsening signs or symptoms. Prescriptions: Nitrofurantoin Macrocrystals [Macrobid] 100 mg PO BID #14 cap Referrals: Luan Young MD [Primary Care Provider] - Follow up with primary Chaz Logan DO [Staff Provider] - Follow up with primary Forms: WORK NOTE
[2018-07-21] MEDS ORDERED: Sodium Chloride 0.9% 1,000 ML IV STA (18:09)
[2018-07-21 18:11] VITALS: TEMP 98.4
[2018-07-21 19:02] LABS: URINE BILIRUBIN NEGATIVE (NEGATIVE); URINE BLOOD NEGATIVE (NEGATIVE); URINE GLUCOSE (UA) NEGATIVE (NEGATIVE); URINE LEUKOCYTE ESTERASE TRACE Leu/uL (NEGATIVE); URINE PROTEIN TRACE mg/dL (<30 mg/dL); URINE UROBILINOGEN 0.2 E.U./dL (<1 E.U./dL)
[2018-07-21 19:05] LABS: URINE APPEARANCE CLEAR (CLEAR); URINE COLOR YELLOW (YELLOW)
[2018-07-21 19:09] LABS: ALB/GLOB RATIO 1.2 (1.1-1.8); ALBUMIN 4.4 g/dL (3.0-4.8); ALT/SGPT 22 U/L (7-56); AST/SGOT 35 U/L (14-36); BLOOD UREA NITROGEN 15 mg/dL (7-21); CALCIUM 9.6 mg/dL (8.4-10.5); GFR NON-AFRICAN AMERICAN 48; LIPASE 315 U/L (23-300)
[2018-07-21 19:13] LABS: BASO # 0.02 K/mm3 (0.0-2.0); BASO % 0.3 % (0.0-3.0); EOS # 0.1 (0.0-0.7); EOS % 1.2 % (1.5-5.0); GRAN # 4.85 (1.4-6.5); GRAN % 70.7 % (50.0-68.0); HEMOGLOBIN 11.2 g/dL (12.0-16.0); LYMPH # 1.6 (1.2-3.4); LYMPH % 23.1 % (22.0-35.0); MEAN CELL VOLUME 73.4 fl (80.0-105.0); MEAN CORPUSCULAR HEMOGLOBIN 23.4 pg (25.0-35.0); MEAN CORPUSCULAR HGB CONC 31.9 g/dl (31.0-37.0); MEAN PLATELET VOLUME 9.6 fl (7.0-11.0); MONO # 0.3 (0.1-0.6); MONO % 4.7 % (1.0-6.0); RBC 4.78 10^6/uL (3.5-6.1); WHITE BLOOD COUNT 6.9 10^3/ul (4.5-11.0)
[2018-07-21 19:19] LABS: TROPONIN I < 0.01 ng/mL
[2018-07-21 19:20] LABS: URINE BACTERIA MANY (NEG); URINE RBC 0 - 2 /hpf (0-2)
[2018-07-21 19:21] LABS: URINE AMORPHOUS SEDIMENT FEW
[2018-07-21] MEDS ORDERED: Potassium Chloride 20 mEq ER Tab PO STA (19:40)
[2018-07-21 20:23] VITALS: O2SAT 100
[2018-07-21 21:09] VITALS: BP 123/72; PULSE 82; RESP 16
--- NOTE | 2018-07-22 06:31 | CARD ---
APPROVED REPORT Date of service: 07/21/2018 EKG Measurement Heart [id number] <Conclusion> Normal sinus rhythm Minimal voltage criteria for LVH, may be normal variant Borderline ECG
--- NOTE | 2018-07-22 08:36 | RAD ---
Date of service: 07/21/2018 HISTORY: medical clearance COMPARISON: 01/11/2018 FINDINGS: LUNGS: No active pulmonary disease. PLEURA: No significant pleural effusion identified, no pneumothorax apparent. CARDIOVASCULAR: No radiographic findings to suggest acute or significant cardiovascular disease. OSSEOUS STRUCTURES: No significant abnormalities. VISUALIZED UPPER ABDOMEN: Normal. OTHER FINDINGS: None. IMPRESSION: No active disease. No significant interval change compared to the prior examination(s). Concordant results with the preliminary interpretation rendered by the emergency department physician procedure.
== END 2018-07-21 21:03 | disposition home or self-care (01) ==
LOC: ED 17:47
DX: N39.0 Urinary tract infection, site not specified (principal); E87.6 Hypokalemia; B37.3 Candidiasis of vulva and vagina; E16.2 Hypoglycemia, unspecified; R53.83 Other fatigue; R74.8 Abnormal levels of other serum enzymes; I10 Essential (primary) hypertension; E78.5 Hyperlipidemia, unspecified
CPT/HCPCS: 71045; 80053; 81001; 82948; 83690; 83735; 84484; 85025; 87086; 93005; 96374; 99285; J2405; J7030

== ENCOUNTER 2018-08-19 08:38 | Emergency (ER) | payer MEDICAID ==
[2018-08-19 08:38] VITALS: BMI 25.0
[2018-08-19 08:51] VITALS: TEMP 98.2
[2018-08-19] MEDS ORDERED: Sodium Chloride 0.9% 1,000 ML IV SCH (09:00)
--- NOTE | 2018-08-19 09:08 | ED PDOC ---
Arrival/HPI - General Chief Complaint: Dizziness/Lightheaded Historian: Patient - History of Present Illness Narrative History of Present Illness (Text): 08/19/18 09:04 48 year old female, with past medical history of hyperlipidemia, presents to the Emergency department for medical evaluation of a transient episode of lightheadedness at 3 am this morning. Patient states she was at work when she became lightheaded but continued to work after mild improvement. Patient states the lightheadedness returned associated with generalized weakness when she reached home. Patient reports similar symptoms in January but denies following up with her PMD. Patient currently informs improved symptoms but informs anxiousness prompting her to present to the Emergency department for medical evaluation. Patient denies any other associated somatic complaints. Patient denies any fevers, chills, headache, chest pain, shortness of breath, dyspnea on exertion, cough, abdominal pain, nausea, vomiting, diarrhea, back pain, neck pain, or any other complaints. PMD: Dr. Young Time/Duration: 4-6 hours Symptom Onset: Gradual Symptom Course: Improving Activities at Onset: Light Context: Work Past Medical History - Provider Review Nursing Documentation Reviewed: Yes - Infectious Disease Hx of Infectious Diseases: None - Tetanus Immunization Tetanus Immunization: Unknown - Past Medical History Past Medical History: No Previous - Cardiac Hx Cardiac Disorders: Yes - Pulmonary Hx Respiratory Disorders: No - Neurological Hx Neurological Disorder: Yes Hx Transient Ischemic Attacks (TIA): Yes - HEENT Hx HEENT Disorder: No - Renal Hx Renal Disorder: No - Endocrine/Metabolic Hx Endocrine Disorders: No - Hematological/Oncological Hx Blood Disorders: No - Integumentary Hx Dermatological Disorder: No - Musculoskeletal/Rheumatological Hx Musculoskeletal Disorders: No - Gastrointestinal Hx Gastrointestinal Disorders: No - Genitourinary/Gynecological Hx Genitourinary Disorders: No - Psychiatric Hx Psychophysiologic Disorder: Yes Hx Depression: Yes Hx Emotional Abuse: No Hx Physical Abuse: No Hx Substance Use: No - Past Surgical History Past Surgical History: No Previous - Anesthesia Hx Anesthesia: No Hx Anesthesia Reactions: No Hx Malignant Hyperthermia: No - Suicidal Assessment Feels Threatened In Home Enviroment: No Family/Social History - Physician Review Nursing Documentation Reviewed: Yes Family/Social History: Unknown Family HX Smoking Status: Never Smoked Hx Alcohol Use: No Hx Substance Use: No Hx Substance Use Treatment: No Allergies/Home Meds Allergies/Adverse Reactions: Allergies Penicillins Allergy (Verified 01/11/18 10:13) SHORTNESS OF BREATH shellfish derived Allergy (Verified 01/11/18 10:13) ANAPHYLAXIS Review of Systems - Physician Review All systems were reviewed & negative as marked: Yes - Review of Systems Constitutional: absent: Fevers Respiratory: absent: SOB, Cough Cardiovascular: absent: Chest Pain Gastrointestinal: absent: Abdominal Pain, Diarrhea, Nausea, Vomiting Musculoskeletal: absent: Back Pain, Neck Pain Neurological: Dizziness. absent: Headache Physical Exam Vital Signs Reviewed: Yes Vital Signs Temp Pulse Resp BP Pulse Ox 08/19/18 08:47 98.2 F 61 13 167/92 H 100 Temperature: Afebrile Blood Pressure: Hypertensive Pulse: Regular Respiratory Rate: Normal Appearance: Positive for: Well-Appearing, Non-Toxic, Comfortable Pain Distress: None Mental Status: Positive for: Alert and Oriented X 3 - Systems Exam Head: Present: Atraumatic, Normocephalic Pupils: Present: PERRL Extroacular Muscles: Present: EOMI Conjunctiva: Present: Normal Mouth: Present: Moist Mucous Membranes Neck: Present: Normal Range of Motion Respiratory/Chest: Present: Clear to Auscultation, Good Air Exchange. No: Respiratory Distress, Accessory Muscle Use Cardiovascular: Present: Regular Rate and Rhythm, Normal S1, S2. No: Murmurs Abdomen: No: Tenderness, Distention, Peritoneal Signs Back: Present: Normal Inspection Upper Extremity: Present: Normal Inspection. No: Cyanosis, Edema Lower Extremity: Present: Normal Inspection. No: Edema Neurological: Present: GCS=15, CN II-XII Intact, Speech Normal Skin: Present: Warm, Dry, Normal Color. No: Rashes Psychiatric: Present: Alert, Oriented x 3, Normal Insight, Normal Concentration Medical Decision Making ED Course and Treatment: 08/19/18 09:09 Impression: 48 year old female presents to the Emergency department for a transient episode of lightheadedness. Plan: -- CT of head -- EKG -- Labs -- Chest X-ray -- IV fluids -- Urinalysis -- Reassess and disposition Prior Visits: Notes and results from previous visits were reviewed. Progress Notes: 08/19/18 09:09 EKG: Ordered, reviewed, and independently interpreted the EKG. Rate : 57 BPM Rhythm : Sinus bradycardia Interpretation: Normal axis. 1st degree AV block. - RAD Interpretation Narrative RAD Interpretations (Text): 08/19/18 12:45 CT of head reviewed by radiologist, shows: FINDINGS: HEMORRHAGE: No intracranial hemorrhage. BRAIN: No mass effect or edema. No atrophy or chronic microvascular ischemic changes. VENTRICLES: Unremarkable. No hydrocephalus. CALVARIUM: Unremarkable. PARANASAL SINUSES: Unremarkable as visualized. No significant inflammatory changes. MASTOID AIR CELLS: Unremarkable as visualized. No inflammatory changes. OTHER FINDINGS: None. IMPRESSION: Normal CT of the Head. 08/19/18 12:47 Chest X-ray reviewed by radiologist, shows: FINDINGS: LUNGS: No active pulmonary disease. PLEURA: No significant pleural effusion identified, no pneumothorax apparent. CARDIOVASCULAR: No aortic atherosclerotic calcification present. Normal cardiac size. No pulmonary vascular congestion. OSSEOUS STRUCTURES: No significant abnormalities. VISUALIZED UPPER ABDOMEN: Normal. OTHER FINDINGS: None. IMPRESSION: No active disease. Radiology Orders: 08/19/18 08:59 CHEST PORTABLE [RAD] Stat 08/19/18 09:00 HEAD W/O CONTRAST [CT] Stat Pile Driving Supervisor: Radiologist - EKG Interpretation Interpreted by ED Physician: Yes Type: 12 lead EKG - Medication Orders Current Medication Orders: Sodium Chloride (Sodium Chloride 0.9%) 1,000 mls @ 100 mls/hr IV .Q10H [facility] - Scribe Statement The provider has reviewed the documentation as recorded by the Scribe Sharona Minaya. All medical record entries made by the Scribe were at my direction and personally dictated by me. I have reviewed the chart and agree that the record accurately reflects my personal performance of the history, physical exam, medical decision making, and the department course for this patient. I have also personally directed, reviewed, and agree with the discharge instructions and disposition. Disposition/Present on Arrival - Present on Arrival Any Indicators Present on Arrival: No History of DVT/PE: No History of Uncontrolled Diabetes: No Urinary Catheter: No History of Decub. Ulcer: No History Surgical Site Infection Following: None - Disposition Have Diagnosis and Disposition been Completed?: Yes Diagnosis: Lightheadedness Disposition: HOME/ ROUTINE Disposition Time: 12:00 Condition: IMPROVED Discharge Instructions (ExitCare): Dizziness, Nonvertigo, (DC) Additional Instructions: MEMO BUTLER, thank you for letting us take care of you today. The emergency medical care you received today was directed at your acute symptoms. If you were prescribed any medication, please fill it and take as directed. It may take several days for your symptoms to resolve. Return to the Emergency Department if your symptoms worsen, do not improve, or if you have any other problems. Please contact your doctor or call one of the physicians/clinics you have been referred to that are listed on the Patient Visit Information form that is included in your discharge packet. Bring any paperwork you were given at discharge with you along with any medications you are taking to your follow up visit. Our treatment cannot replace ongoing medical care by a primary care provider outside of the emergency department. Thank you for allowing the [facility] team to be part of your care today. Follow up with your primary care doctor tomorrow as scheduled for re-evaluation and further management. Prescriptions: Meclizine [Meclizine*] 25 mg PO Q6 PRN #20 tab PRN Reason: Dizziness Referrals: Luan Young MD [Family Provider] - Follow up with primary Forms: [employer] (Thai)
[2018-08-19 10:33] LABS: URINE BILIRUBIN NEGATIVE (NEGATIVE); URINE BLOOD TRACE-INTACT (NEGATIVE); URINE GLUCOSE (UA) NEGATIVE (NEGATIVE); URINE LEUKOCYTE ESTERASE TRACE Leu/uL (NEGATIVE); URINE PROTEIN NEGATIVE mg/dL (<30 mg/dL); URINE UROBILINOGEN 0.2 E.U./dL (<1 E.U./dL)
[2018-08-19 10:34] LABS: BASO # 0.04 K/mm3 (0.0-2.0); BASO % 0.7 % (0.0-3.0); EOS # 0.4 (0.0-0.7); EOS % 6.6 % (1.5-5.0); GRAN # 3.08 (1.4-6.5); GRAN % 55.3 % (50.0-68.0); LYMPH # 1.8 (1.2-3.4); MEAN CELL VOLUME 74.1 fl (80.0-105.0); MEAN CORPUSCULAR HEMOGLOBIN 22.7 pg (25.0-35.0); MEAN CORPUSCULAR HGB CONC 30.7 g/dl (31.0-37.0); MEAN PLATELET VOLUME 9.6 fl (7.0-11.0); MONO # 0.3 (0.1-0.6); MONO % 5.4 % (1.0-6.0); RBC 4.4 10^6/uL (3.5-6.1); RED CELL DISTRIBUTION WIDTH 15.5 % (11.5-14.5); WHITE BLOOD COUNT 5.6 10^3/uL (4.5-11.0)
[2018-08-19 10:39] LABS: HCG,QUALITATIVE URINE NEGATIVE (NEGATIVE); URINE APPEARANCE SL CLOUDY (CLEAR); URINE COLOR YELLOW (YELLOW)
[2018-08-19 10:44] LABS: URINE BACTERIA FEW (NEG); URINE RBC 0 - 2 /hpf (0-2); URINE WBC 0 - 2 /hpf (0-6)
[2018-08-19 10:51] LABS: TROPONIN I < 0.01 ng/mL
[2018-08-19 10:53] LABS: ALB/GLOB RATIO 1.2 (1.1-1.8); ALBUMIN 4.2 g/dL (3.0-4.8); ALT/SGPT 23 U/L (7-56); AST/SGOT 22 U/L (14-36); BLOOD UREA NITROGEN 16 mg/dL (7-21); CALCIUM 9.4 mg/dL (8.4-10.5); GFR NON-AFRICAN AMERICAN 53
[2018-08-19 11:39] VITALS: RESP 18
--- NOTE | 2018-08-19 12:18 | CT ---
Date of service: 08/19/2018 PROCEDURE: CT HEAD WITHOUT CONTRAST. HISTORY: r/o ICH COMPARISON: None available. TECHNIQUE: Axial computed tomography images were obtained through the head/brain without intravenous contrast. Radiation dose: Total exam DLP = 815.04 mGy-cm. This CT exam was performed using one or more of the following dose reduction techniques: Automated exposure control, adjustment of the mA and/or kV according to patient size, and/or use of iterative reconstruction technique. FINDINGS: HEMORRHAGE: No intracranial hemorrhage. BRAIN: No mass effect or edema. No atrophy or chronic microvascular ischemic changes. VENTRICLES: Unremarkable. No hydrocephalus. CALVARIUM: Unremarkable. PARANASAL SINUSES: Unremarkable as visualized. No significant inflammatory changes. MASTOID AIR CELLS: Unremarkable as visualized. No inflammatory changes. OTHER FINDINGS: None. IMPRESSION: Normal CT of the Head.
--- NOTE | 2018-08-19 12:37 | RAD ---
Date of service: 08/19/2018 HISTORY: r/o infiltrate COMPARISON: 07/21/2018 FINDINGS: LUNGS: No active pulmonary disease. PLEURA: No significant pleural effusion identified, no pneumothorax apparent. CARDIOVASCULAR: No aortic atherosclerotic calcification present. Normal cardiac size. No pulmonary vascular congestion. OSSEOUS STRUCTURES: No significant abnormalities. VISUALIZED UPPER ABDOMEN: Normal. OTHER FINDINGS: None. IMPRESSION: No active disease.
--- NOTE | 2018-08-19 12:38 | CARD ---
APPROVED REPORT Date of service: 08/19/2018 EKG Measurement Heart [id number] <Conclusion> Sinus bradycardia Otherwise normal ECG
[2018-08-19 12:58] VITALS: BP 138/72; PULSE 58; O2SAT 99
== END 2018-08-19 12:58 | disposition home or self-care (01) ==
LOC: ED 08:38
DX: R42 Dizziness and giddiness (principal); E78.5 Hyperlipidemia, unspecified; Z86.73 Personal history of transient ischemic attack (TIA), and cerebral infarction without residual deficits
CPT/HCPCS: 70450; 71045; 80053; 81001; 82550; 83615; 83735; 84484; 84703; 85025; 87086; 93005; 99285; J7030